=== PATIENT | female | born 1995 | race Caucasian/White ===

== ENCOUNTER 2019-04-30 00:32 | Day surgery (SDC) | payer OTHER, SELFPAY ==
[2019-04-26 08:12] VITALS: BMI 34.5
--- NOTE | 2019-04-28 14:20 | WPDANESEPP ---
Anes - Eval Pre Procedure Procedure: Operation Date: 04/30/19 10:30 Proposed Procedures p Colonoscopy - Chase Sotomayor MD Date/Time: 04/28/19 14:20 Pre Op Diagnosis: blood in stool Patient Data Age: 23 Gender: F Height: 5 ft 7 in Weight: 100 kg Allergies Allergy/AdvReac Type Severity Reaction Status Date / Time Penicillins Allergy Unknown Other Verified 04/26/19 08:11 Home Medications Medication Instructions Recorded Confirmed Type prenat.vits,tsering,ltt-fxod-vwmfi 1 tab PO DAILY tablet 01/19/19 04/26/19 Rx [KPN] Patient hx anesthesia problems: none Family hx anesthesia problems: none PMFSH Past Medical History Medical History (Updated 04/28/19 @ 14:21 by Linda Lorenz CRNA) Obesity (BMI 30-39.9) Vaginal delivery recent uncomplicated vaginal delivery -Dec 2018, continues to breast feed Exam Day of Procedure 04/28/19 14:20
[2019-04-30 09:23] VITALS: BP 119/78; PULSE 82; RESP 18; TEMP 36.7; O2SAT 97
[2019-04-30] MEDS: LACTATED RINGERS 1,000 ML 150 ML IV CONT (09:44)
--- NOTE | 2019-04-30 09:57 | P.PNAN_ITS ---
Anes - Eval Final PreProcedure Day of Procedure 04/30/19 09:57 Patient weight: obese Heart: regular rate and rhythm Lungs: clear to auscultation Airway: Mallampati scale class II Neurological: alert and oriented Last oral intake: >/= 8 hours ASA classification: II Emergent: no Anesthetic plan: proceed Anesthesia type and monitoring: general GIVS and standard monitoring Informed Consent: The patient's anesthetic plan and its attendant risks and be nefits were discussed with the patient/family/POA. Questions were solicited and answers provided to the satisfaction of the patient/family/POA.
--- NOTE | 2019-04-30 10:19 | P.HP_ITS ---
History of Present Illness History of Present Illness Consent: Risks, benefits, and alternatives have been discussed and questions answered. Patient agrees to proceed with procedure. Chief complaint: blood in stool Narrative: Micki Kovacs is a 23 year old female who was been passing blood in her stools for several months. She tends to be constipated, having a bowel movement every 3 or 4 days. She is using stool softeners now. At times the blood is bright red. Otherwise it may be dark. [facility] Past Medical History Medical History Obesity (BMI 30-39.9) Vaginal delivery recent uncomplicated vaginal delivery -Dec 2018, continues to breast feed Meds Home Medications and Allergies Home Medications Medication Instructions Recorded Confirmed Type prenat.vits,tsering,vvk-hzgn-fchsn 1 tab PO DAILY tablet 01/19/19 04/26/19 Rx [KPN] Allergies Allergy/AdvReac Type Severity Reaction Status Date / Time Penicillins Allergy Unknown Other Verified 04/30/19 09:22 Vital Signs Vital Signs - 24 hr 04/30/19 09:23 Temperature 36.7 C Pulse Rate 82 Respiratory Rate 18 Blood Pressure 119/78 Pulse Oximetry 97 Exam Resp: Auscultation: clear to auscultation bilaterally Cardio: Rate: regular rate Rhythm: regular rhythm GI: GI Palp: Yes Soft to palpation and No Tenderness to palpation present (GI) Assessment and Plan Assessment and plan (1) Blood in stool: Code(s): K92.1 - Melena Status: Acute Assessment and Plan: Colonoscopy with possible biopsy or polypectomy or cautery or injection of substances.
[2019-04-30 10:48] VITALS: BP 107/60; PULSE 75; RESP 22; O2SAT 98
[2019-04-30 10:58] VITALS: BP 114/74; PULSE 80; RESP 19; O2SAT 98
[2019-04-30 11:08] VITALS: BP 108/66; PULSE 57; RESP 15; O2SAT 100
== END 2019-04-30 11:19 | disposition home or self-care (01) ==
PROVIDERS: PCP Nurse Practitioner Adult Health; Visit Provider Internal Medicine Gastroenterology
PROC: 0DJD8ZZ Inspection of Lower Intestinal Tract, Via Natural or Artificial Opening Endoscopic (ICD-10-PCS; CPT 45378; principal; 2019-04-30 10:30)
DX: K62.5 Hemorrhage of anus and rectum (principal); K64.8 Other hemorrhoids
CPT/HCPCS: 45378; J2704; J7120